=== PATIENT | female | born 1985 | race Caucasian/White ===

== ENCOUNTER 2016-11-07 08:01 | Observation (INO) | payer OTHER ==
[~2016-11-07 08:01] MED LIST: BLOXIVERZ IV ONE; DIPRIVAN 200 MG/20 ML IV ONE; Decadron 4 MG INJ IV ONE; Quelicin Fliptop 200 MG/10 ML IJ ONE; ROBINUL IV ONE; SUBLIMAZE 250 MCG/5 ML IJ ONE; Versed 2 MG/2 ML Injection IV ONE; Zemuron 100 MG/10 ML IJ ONE; Zofran 4 MG/2 ML VIAL IV ONE
[2016-11-07] MEDS ORDERED: DILAUDID 2 MG INJECTION IV PRN (08:16)
[2016-11-07] MEDS ORDERED: Zofran 4 MG/2 ML VIAL IV PRN (08:16)
[2016-11-07] MEDS ORDERED: PROTONIX 40 MG IV IV ONE (08:16)
[2016-11-07] MEDS ORDERED: Phenergan 25 MG INJ IV PRN ×2 (08:16→14:44)
[2016-11-07] MEDS ORDERED: Sodium Chloride 0.9% 1000 ML 1,000 ML IV STA (08:16)
[2016-11-07] MEDS ORDERED: Dextrose 5% -0.45 NaCl 1000 ML 1,000 ML IV SCH (08:30)
[2016-11-07 08:53] LABS: BASOPHIL % 0.7 % (0.0-0.4); Eosinophil % 4.1 % (0.00-5.0); Granulocytes % 57.5 % (36.0-66.0); Lymphocytes % 26.7 % (24.0-44.0); Mean Cell Volume 84.7 fl (78-100); Mean Corpuscular Hemoglobin 28.4 pg (26-32); Mean Platelet Volume 10.9 fl (6-9.5); Platelet Count 251 K/mm3 (150-450); Red Blood Count 4.44 M/mm3 (4.1-5.4); Red Cell Distribution Width 14.4 % (11.5-14.0); White Blood Count 5.4 K/mm3 (4.0-10.5)
[2016-11-07 09:21] LABS: INR 1.05 (0.8-3.0); PROTIME 11.9 SECONDS (9.95-12.35)
[2016-11-07 09:24] LABS: PTT 31.2 SECONDS (25.3-37.0)
[2016-11-07 09:31] LABS: ALKALINE PHOSPHATASE 246 U/L (46-116); ANION GAP 13.6 MEQ/L (5-15); BLOOD UREA NITROGEN 13 mg/dL (9-20); CHLORIDE 105 mEq/L (98-107); Carbon Dioxide 25.7 mEq/L (21-32); Glucose 100 MG/DL (70-110); LIPASE 115 U/L (73-393); Potassium 3.5 mEq/L (3.5-5.1); SGOT/AST 552 U/L (15-37); SGPT/ALT 711 U/L (12-78); SODIUM 141 mEq/L (136-145)
--- NOTE | 2016-11-07 09:37 | XRAY ---
Indication: Right upper quadrant pain for 5 months. Two-dimensional right upper quadrant abdominal sonogram performed. Comparison: None Gallbladder normally distended with several small centimeter/subcentimeter gallstones in the dependent portion. No gallbladder wall thickening or pericholecystic fluid. Common bile duct measures 8.3 mm, borderline prominent. No intrahepatic biliary distention. Remaining visual is portions of the liver, pancreas, and right kidney appear sonographically normal. Right kidney measures 9.5 cm in length. No ascites. Impression: Gallstones. Borderline prominent common bile duct for which a choledochal stone cannot be completely excluded. MRCP or ERCP may yield further information if clinically warranted.
[2016-11-07] MEDS: Unasyn 3GM / NaCl 100ML 3 GM/100 ML IVPB IV SCH ×3 (09:50→23:02)
[2016-11-07 09:54] LABS: Collection Type CLEAN CATCH
[2016-11-07 10:09] LABS: Bilirubin MODERATE (NEGATIVE); Blood 250 Ery/ul (0-5); COMPLETE URINE MICROSCOPIC? YES; Glucose NEGATIVE (NEGATIVE); Leukocyte Esterase 1+ (NEGATIVE)
[2016-11-07 10:10] LABS: Bacteria MANY /HPF (NEGATIVE); Epithelial Cells MANY /HPF (FEW)
[2016-11-07] MEDS ORDERED: Lactated Ringers 1,000 ML IV SCH (12:30)
[2016-11-07] MEDS ORDERED: MEFOXIN 2 GM PREMIX** 2 GM/50 ML ML IV SCH (13:00)
[2016-11-07] MEDS ORDERED: TYLENOL 325 MG PO PRN (14:36)
[2016-11-07] MEDS ORDERED: Sensorcaine 0.25% 10 ML ONE (16:16)
[2016-11-07] MEDS ORDERED: Lactated Ringers 1,000 ML IV ONE (16:16)
[2016-11-07] MEDS ORDERED: Phenergan 25 MG INJ ONE (18:41)
[2016-11-07] MEDS ORDERED: MORPHINE SULFATE 10 MG/ML ONE (18:41)
[2016-11-07] MEDS ORDERED: Zofran 4 MG/2 ML VIAL ONE (20:58)
[2016-11-07] MEDS ORDERED: Morphine PCA 1 MG/ML 30 ML IV PRN (21:00)
[2016-11-07] MEDS ORDERED: D5W/0.45NS W/ 20mEq KCl 1000 ML 1,000 ML IV ONE (21:32)
[2016-11-07] MEDS ORDERED: MEFOXIN 1 Gm/ D5W 50 Ml** 1 G/50 ML ML IV ONE (21:36)
[2016-11-07] MEDS ORDERED: D5W/0.45NS W/ 20mEq KCl 1000 ML 1,000 ML IV SCH (22:00)
--- NOTE | 2016-11-07 22:53 | PCM.HP ---
History of Present Illness - Chief Complaint Chief Complaint: dehydration vomiting Date: 11/07/16 History of Present Illness: is a 31 year old female. who has had intermittent pains in the right upper quadrant radiating to her back associated with nausea since her last that she delivered several months ago. She developed sudden unrelenting pain yesterday with vomiting clear liquid with ruq pain radiating to the back yesterday worsening over the night unable to keep anything down. Her urine became orange and she presented today as direct admission over concern of gallbladder acute disease with dehydration. - Review of Systems Constitutional: No Fever, No Chills Eyes: No Symptoms Ears, Nose, & Throat: No Symptoms Respiratory: No Cough, No Short Of Breath Cardiac: No Chest Pain, No Edema, No Syncope Abdominal/Gastrointestinal: Abdominal Pain, Nausea, Vomiting, No Diarrhea, No Constipation, No Hematemesis, No Hematochezia, No Melena Genitourinary Symptoms: No Dysuria Musculoskeletal: No Back Pain, No Neck Pain Skin: No Rash Neurological: No Dizziness, No Focal Weakness, No Sensory Changes Psychological: No Symptoms Endocrine: No Symptoms Hematologic/Lymphatic: No Symptoms Immunological/Allergic: No Symptoms Medications & Allergies Home Medications: Home Medication List No Reportable Medications [No Reported Medications] 11/07/16 [History Confirmed 11/07/16] Allergies/Adverse Reactions: Allergies Allergy/AdvReac Type Severity Reaction Status Date / Time No Known Drug Allergies Allergy Unverified 04/06/13 07:54 - Past Medical History Past Medical History: No Neurological History: No Pertinent History ENT History: No Pertinent History Cardiac History: Other Respiratory History: No Pertinent History Endocrine Medical History: No Pertinent History Musculoskelatal History: No Pertinent History GI Medical History: No Pertinent History History: No Pertinent History Pyscho-Social History: No Pertinent History Reproductive Disorders: Other Comment: heart mumur, mass on ovary - Female History Hx Last Menstrual Period: not know Are you now?: Yes (possibliltiy) - Past Surgical History Past Surgical History: Yes Neuro Surgical History: No Pertinent History Cardiac History: No Pertinent History Respiratory Surgery: No Pertinent History GI Surgical History: No Pertinent History Genitourinary Surgical Hx: No Pertinent History Musculskeletal Surgical Hx: No Pertinent History Female Surgical History: Section Other Surgical History: RSO 2014. 2 c-sec - Social History Smoking Status: Never smoker Exposure to second hand smoke: No Alcohol: Rarely Drug Use: none - Physical Exam Vital Signs: Vital Signs - 24 hr Temp Pulse Resp BP Pulse Ox 11/07/16 21:20 98.9 F 88 16 136/71 95 11/07/16 21:17 95 11/07/16 20:20 98.3 F 74 16 119/66 95 11/07/16 19:50 99.1 F 69 16 126/68 94 L 11/07/16 19:20 98.0 F 66 16 135/72 94 L 11/07/16 19:05 97.8 F 64 14 137/69 93 L 11/07/16 15:46 99.4 F 69 12 130/77 96 11/07/16 15:44 99.4 F 69 12 130/77 96 11/07/16 12:00 98.5 F 63 20 137/87 97 11/07/16 08:06 98.4 F 87 18 137/87 96 General Appearance: no apparent distress, alert Neurologic Exam: alert, oriented x 3, cooperative, normal mood/affect, nml cerebellar function, nml station & gait, sensation nml, No motor deficits Eye Exam: PERRL/EOMI, eyes nml inspection, scleral icterus Ears, Nose, Throat Exam: dry mucous membranes Neck Exam: normal inspection, non-tender, supple, full range of motion Respiratory Exam: normal breath sounds, lungs clear, No respiratory distress Cardiovascular Exam: regular rate/rhythm, normal heart sounds, normal peripheral pulses Gastrointestinal/Abdomen Exam: soft, normal bowel sounds, tenderness, guarding, other (+ Ceja sign), No mass, No rebound Back Exam: normal inspection, normal range of motion, No CVA tenderness, No vertebral tenderness Extremity Exam: normal inspection, normal range of motion, pelvis stable Skin Exam: normal color, warm, dry, jaundice, No rash Lymphatic Exam: No adenopathy Results - Labs Lab/Micro Results: Lab Results-Last 24 Hours 11/07/16 11/07/16 11/07/16 Range/Units 08:16 08:17 08:30 WBC 5.4 (4.0-10.5) K/mm3 RBC 4.44 (4.1-5.4) M/mm3 Hgb 12.6 (12.0-16.0) gm/dl Hct 37.6 (35-47) % MCV 84.7 (78-100) fl MCH 28.4 (26-32) pg MCHC 33.5 (32-36) g/dl RDW 14.4 H (11.5-14.0) % Plt Count 251 (150-450) K/mm3 MPV 10.9 H (6-9.5) fl Gran % 57.5 (36.0-66.0) % Lymphocytes % 26.7 (24.0-44.0) % Monocytes % 11.0 (0.0-12.0) % Eosinophils % 4.1 (0.00-5.0) % Basophils % 0.7 (0.0-0.4) % Basophils # 0.04 (0-0.4) INR (0.8-3.0) APTT (25.3-37.0) SECONDS Sodium (136-145) mEq/L Potassium (3.5-5.1) mEq/L Chloride (98-107) mEq/L Carbon Dioxide (21-32) mEq/L Anion Gap (5-15) MEQ/L BUN (9-20) mg/dL Creatinine (0.55-1.30) mg/dl Estimated GFR ML/MIN Glucose (70-110) MG/DL Calcium (8.5-10.1) mg/dL Total Bilirubin (0.2-1.0) mg/dL AST (15-37) U/L ALT (12-78) U/L Alkaline Phosphatase (46-116) U/L Serum Total Protein (6.4-8.2) gm/dL Albumin (3.4-5.0) g/dL Lipase (73-393) U/L Ur Collection Type CLEAN CATCH Urine Color [place] (YELLOW) Urine Appearance CLOUDY (CLEAR) Urine pH 6.0 (5-6) Ur Specific [place] 1.015 (1.005-1.025) Urine Protein NEGATIVE (Negative) Urine Ketones TRACE (NEGATIVE) Urine Blood 250 (0-5) Fletcher/ul Urine Nitrite NEGATIVE (NEGATIVE) Urine Bilirubin MODERATE (NEGATIVE) Urine Urobilinogen 8 (0-1) mg/dL Ur Leukocyte Esterase 1+ (NEGATIVE) Urine Microscopic RBC 15-25 (0-2) /HPF Urine Microscopic WBC 5-10 (0-5) /HPF Ur Epithelial Cells MANY (FEW) /HPF Urine Bacteria MANY (NEGATIVE) /HPF Urine Glucose NEGATIVE (NEGATIVE) mg/dL Urine HCG, Qual NEGATIVE (Negative) Specimen Received 11/07/16 0900 11/07/16 11/07/16 Range/Units 08:30 08:30 WBC (4.0-10.5) K/mm3 RBC (4.1-5.4) M/mm3 Hgb (12.0-16.0) gm/dl Hct (35-47) % MCV (78-100) fl MCH (26-32) pg MCHC (32-36) g/dl RDW (11.5-14.0) % Plt Count (150-450) K/mm3 MPV (6-9.5) fl Gran % (36.0-66.0) % Lymphocytes % (24.0-44.0) % Monocytes % (0.0-12.0) % Eosinophils % (0.00-5.0) % Basophils % (0.0-0.4) % Basophils # (0-0.4) INR 1.05 (0.8-3.0) APTT 31.2 (25.3-37.0) SECONDS Sodium 141 (136-145) mEq/L Potassium 3.5 (3.5-5.1) mEq/L Chloride 105 (98-107) mEq/L Carbon Dioxide 25.7 (21-32) mEq/L Anion Gap 13.6 (5-15) MEQ/L BUN 13 (9-20) mg/dL Creatinine 0.91 (0.55-1.30) mg/dl Estimated GFR > 60 ML/MIN Glucose 100 (70-110) MG/DL Calcium 9.1 (8.5-10.1) mg/dL Total Bilirubin 4.40 H (0.2-1.0) mg/dL AST 552 H (15-37) U/L ALT 711 H (12-78) U/L Alkaline Phosphatase 246 H (46-116) U/L Serum Total Protein 8.0 (6.4-8.2) gm/dL Albumin 4.0 (3.4-5.0) g/dL Lipase 115 (73-393) U/L Ur Collection Type Urine Color (YELLOW) Urine Appearance (CLEAR) Urine pH (5-6) Ur Specific [place] (1.005-1.025) Urine Protein (Negative) Urine Ketones (NEGATIVE) Urine Blood (0-5) Fletcher/ul Urine Nitrite (NEGATIVE) Urine Bilirubin (NEGATIVE) Urine Urobilinogen (0-1) mg/dL Ur Leukocyte Esterase (NEGATIVE) Urine Microscopic RBC (0-2) /HPF Urine Microscopic WBC (0-5) /HPF Ur Epithelial Cells (FEW) /HPF Urine Bacteria (NEGATIVE) /HPF Urine Glucose (NEGATIVE) mg/dL Urine HCG, Qual (Negative) Specimen Received - Radiology Impressions Radiology Exams & Impressions: Radiology Procedures Category Date Time Status GALLBLADDER [US] Stat Exams 11/07/16 08:16 Completed Assessment/Plan (1) Chronic cholecystitis due to cholelithiasis with choledocholithiasis Current Visit: Yes Status: Acute Assessment & Plan: suspected diagnosis given elevated bili and transaminases no stone seen in duct on u/s and cbd upper limits of normal was evaluated by Dr. Schwab recommends cholecystectomy which was done this evening and monitor bili levels and symptoms to decide on referral for ERCP Code(s): K80.64 - CALCULUS OF GB AND BILE DUCT W CHRONIC CHOLECYST W/O OBST
[2016-11-07] MEDS: MEFOXIN 1 Gm/ D5W 50 Ml** 1 G/50 ML ML IV SCH (23:20)
[2016-11-08] MEDS: MEFOXIN 1 Gm/ D5W 50 Ml** 1 G/50 ML ML IV SCH ×2 (00:17→06:40)
[2016-11-08] MEDS: Unasyn 3GM / NaCl 100ML 3 GM/100 ML IVPB IV SCH (05:20)
[2016-11-08 06:24] LABS: ALBUMIN 3.4 g/dL (3.4-5.0); ALKALINE PHOSPHATASE 270 U/L (46-116); ANION GAP 11.4 MEQ/L (5-15); BASOPHIL % 0.1 % (0.0-0.4); BLOOD UREA NITROGEN 8 mg/dL (9-20); CHLORIDE 107 mEq/L (98-107); Carbon Dioxide 26.7 mEq/L (21-32); Eosinophil % 0.1 % (0.00-5.0); Glucose 119 MG/DL (70-110); Granulocytes % 71.8 % (36.0-66.0); LIPASE 86 U/L (73-393); Lymphocytes % 18.7 % (24.0-44.0); Mean Cell Volume 86.6 fl (78-100); Mean Corpuscular Hemoglobin 28.1 pg (26-32); Monocytes % 9.3 % (0.0-12.0); Platelet Count 255 K/mm3 (150-450); Red Blood Count 4.02 M/mm3 (4.1-5.4); Red Cell Distribution Width 14.6 % (11.5-14.0); SGOT/AST 311 U/L (15-37); SGPT/ALT 578 U/L (12-78); SODIUM 141 mEq/L (136-145); White Blood Count 7.3 K/mm3 (4.0-10.5)
[2016-11-08 11:18] VITALS: BP 137/88; PULSE 79; O2SAT 95
--- NOTE | 2016-11-08 11:37 | PCM.DCORD ---
- Discharge Discharge Date: 11/08/16 Disposition: Home, Self-Care Condition: Stable Prescriptions: New Amoxicillin/Potassium Clav [Augmentin 875-125 Tablet] 875 mg PO BID #10 tablet Hydrocodone Bit/Acetaminophen [[place] 5-325 Tablet] 1 each PO Q4H PRN PRN #12 tablet PRN Reason: Pain Promethazine HCl 25 mg [Phenergan 25 mg] 25 mg PO Q4H PRN #30 tablet PRN Reason: Nausea Follow up with: PADMAJA DILLON [ACTIVE STAFF] - Call for Appointment
--- NOTE | 2016-11-08 11:43 | PCM.DS ---
Discharge Summary Date of Admission: 11/07/16 08:01 Date of Discharge: 11/08/16 Admitting Physician: EWA PAINTING Consults: Consults on Case 11/07/16 08:16 Consult Surgery Primary Care Provider: WENDY LO Allergies Allergies No Known Drug Allergies Allergy (Unverified 04/06/13 07:54) Hospital Summary - Hospital Course Hospital Course: She has been having intermittent abdominal pain RUQ for months and the day prior to presentation it was much worse unable to eat or drink unrelenting and radiating to the right back she was vomiting. She began having urine turn orange color as well and was sent for direct admission and evaluation and found to have symptomatic cholelithiasis with chronic cholecystitis and hyperbilirubinemia and hepatitis suspected choledocholethiasis but not visualized. She was taken to OR by Dr. Fariba Schwab on day of presentation 11/07/16 and cholecystectomy at that time. She was sent back to the floor. She was tolerating po and pod 1 was feeling much better no nausea eating regular her color was significantly improved compared to her pre op color at 17:00 that had worsened significantly compared to presentation and at time of discharge only slight jaundice present. Her Bili was only marginally better on recheck but was likely worse given time from the original draw to when the surgery was. She remained afebrile abdomen had normal post operative pains only. Her lipase remained normal. Dr. Alexander coil connector for Dr. Schwab recommended d/c and follow up Thursday with repeat labs or sooner if worsening to rule out remaining cbd stone. - Vitals & Intake/Output Vital Signs: Vital Signs Temperature 99.1 F 11/08/16 11:17 Pulse Rate 79 11/08/16 11:17 Respiratory Rate 20 11/08/16 11:17 Blood Pressure 137/88 11/08/16 11:17 O2 Sat by Pulse Oximetry 95 11/08/16 11:17 Intake & Output: Intake & Output 11/05/16 11/06/16 11/07/16 11/08/16 11:59 11:59 11:59 11:59 Intake Total 3160 Output Total 100 2790 Balance -100 370 Weight 82.1 kg 84.368 kg - Lab Result Diagrams: 11/08/16 05:25 11/08/16 05:25 Lab Results-Last 24 Hrs: Lab Results-Last 24 Hours 11/08/16 11/08/16 11/08/16 Range/Units 05:25 05:25 05:25 WBC 7.3 (4.0-10.5) K/mm3 RBC 4.02 L (4.1-5.4) M/mm3 Hgb 11.3 L (12.0-16.0) gm/dl Hct 34.8 L (35-47) % MCV 86.6 (78-100) fl MCH 28.1 (26-32) pg MCHC 32.5 (32-36) g/dl RDW 14.6 H (11.5-14.0) % Plt Count 255 (150-450) K/mm3 MPV 11.0 H (6-9.5) fl Gran % 71.8 H (36.0-66.0) % Lymphocytes % 18.7 L (24.0-44.0) % Monocytes % 9.3 (0.0-12.0) % Eosinophils % 0.1 (0.00-5.0) % Basophils % 0.1 (0.0-0.4) % Basophils # 0.01 (0-0.4) Sodium 141 (136-145) mEq/L Potassium 4.0 (3.5-5.1) mEq/L Chloride 107 (98-107) mEq/L Carbon Dioxide 26.7 (21-32) mEq/L Anion Gap 11.4 (5-15) MEQ/L BUN 8 L (9-20) mg/dL Creatinine 0.81 (0.55-1.30) mg/dl Estimated GFR > 60 ML/MIN Glucose 119 H (70-110) MG/DL Calcium 8.7 (8.5-10.1) mg/dL Total Bilirubin 4.10 H (0.2-1.0) mg/dL Direct Bilirubin 3.64 H (0.0-0.2) MG/DL AST 311 H (15-37) U/L ALT 578 H (12-78) U/L Alkaline Phosphatase 270 H (46-116) U/L Serum Total Protein 7.0 (6.4-8.2) gm/dL Albumin 3.4 (3.4-5.0) g/dL Lipase 86 (73-393) U/L Micro Results-Entire Visit: Microbiology 11/07/16 08:27 - Preliminary Clean Catch Midstream NO GROWTH TO DATE - Radiology Exams Ordered Rad Exams-Entire Visit: Radiology Procedures Category Date Time Status GALLBLADDER [US] Stat Exams 11/07/16 08:16 Completed Discharge Exam General Appearance: no apparent distress, alert Neurologic Exam: alert, oriented x 3, cooperative, normal mood/affect, nml cerebellar function, sensation nml, No motor deficits Skin Exam: normal color, warm, dry Eye Exam: PERRL, EOMI, scleral icterus Ears, Nose, Throat Exam: normal ENT inspection, pharynx normal, moist mucous membranes Neck Exam: normal inspection, non-tender, supple, full range of motion Respiratory Exam: normal breath sounds, lungs clear, No respiratory distress Cardiovascular Exam: regular rate/rhythm, normal heart sounds Gastrointestinal/Abdomen Exam: soft, tenderness, No mass, No guarding, No ecchymosis (incisions are clean dry and intact tenderness RUQ no guarding.) Extremity Exam: normal inspection, normal range of motion Back Exam: normal inspection, normal range of motion, No CVA tenderness, No vertebral tenderness Pelvic Exam: deferred Rectal Exam: deferred Final Diagnosis/Problem List - Final Discharge Diagnosis/Problem (1) Acute and chronic cholecystitis Current Visit: Yes Status: Acute (2) Hyperbilirubinemia Current Visit: Yes Status: Acute - Discharge Disposition: Home, Self-Care Condition: Stable Prescriptions: New Amoxicillin/Potassium Clav [Augmentin 875-125 Tablet] 875 mg PO BID #10 tablet Hydrocodone Bit/Acetaminophen [[place] 5-325 Tablet] 1 each PO Q4H PRN PRN #12 tablet PRN Reason: Pain Promethazine HCl 25 mg [Phenergan 25 mg] 25 mg PO Q4H PRN #30 tablet PRN Reason: Nausea Follow up with: PADMAJA SCHWAB [ACTIVE STAFF] - Call for Appointment
--- NOTE | 2016-11-08 14:52 | OP ---
DATE OF PROCEDURE: 11/07/2016 TIME OF PROCEDURE: 1735 PREOPERATIVE DIAGNOSIS: Acute cholecystitis, cholelithiasis. POSTOPERATIVE DIAGNOSIS: Acute cholecystitis, cholelithiasis PROCEDURE: Laparoscopic cholecystectomy SURGEON: Jesu Schwab M.D. ANESTHESIA: General endotracheal tube. COMPLICATIONS: None. CONDITION: Stable. A 31 year-old upper abdominal pain, ultrasound positive. She does have bilirubin of 4. She may very well have common bile duct stones, has elected to proceed with laparoscopic cholecystectomy. She may need an ERCP subsequently. She was taken to surgery, general anesthetic, routine prepped and draped. Right upper quadrant Veress needle, insufflated pressure of 14. Three 5's and 10 were placed. Good visualization. There was marked inflammation. The cystic duct was fairly broad, 6 to 7 mm. It was markedly inflamed. It was taken with a stapler 4 mm off the common bile duct. The gallbladder rolled out of gallbladder fossa, cystic artery triply ligaclipped. Gallbladder delivered through the upper abdominal port. 8 large stones were present. The field was irrigated, was totally clean. No drains were placed. Before CO2 was exsufflated the upper hole was closed with a hole closure device and 0 Vicryl. Skin closed with 4-0 Vicryl Steri-strips. The patient tolerated the procedure satisfactorily.
== END 2016-11-08 12:35 | disposition home or self-care (01) ==
LOC: INTOOBSV 08:01 → OBSVTOIN 08:01 → MED SURG 08:01
PROVIDERS: ADMIT Family Medicine; ATTEND Family Medicine
PROC: 0FT44ZZ Resection of Gallbladder, Percutaneous Endoscopic Approach (ICD-10-PCS; principal; 2016-11-07)
DX: K80.12 Calculus of gallbladder with acute and chronic cholecystitis without obstruction (principal); K80.44 Calculus of bile duct with chronic cholecystitis without obstruction; E80.6 Other disorders of bilirubin metabolism
CPT/HCPCS: 00790; 36415; 76705; 80053; 81000; 82248; 83690; 84703; 85025; 85610; 85730; 87086; 88304; G0378; J0295; J0330; J0694; J1100; J1170; J2250; J2270; J2405; J2550; J2704; J2710; J3010; A9270-GY